=== PATIENT | female | born 1940 | race Caucasian/White ===

== ENCOUNTER 2016-11-21 14:20 | Inpatient (IN) | payer MEDICARE, OTHER ==
[~2016-11-21] VITALS: Ht 160 cm; Wt 66.3 kg
[~2016-11-21 14:20] MED LIST: ACET325T53 PO; ASPI81TA31 PO; BISA10SU8 RC; CHOL100045 PO; DOCU-141 PO; HYDR-552 PO; LORA-259 PO; MAG30ORA PO; MAGN296S PO; MAGN400O6 PO; MAGN400T6 PO; MULT1TAB11 PO; NA P133E RC; OMEG-49 PO; PEG15DRO5 EACHEYE; PIPE3.379 IV; PROP1DRO OP; SIME80TA45 PO; SIMV20TA2 PO; TEMA7.5C PO; TOBR5DRO2 RIGHTEYE
[2016-11-21] MEDS ORDERED: OASIS TEARS EACHEYE (14:47)
[2016-11-21] MEDS ORDERED: MELA3TAB PO (14:47)
[2016-11-21 15:32] LABS: BASOPHILS # (AUTO) 0.1 K/uL (0.0-8.0); BASOPHILS % (AUTO) 1.2 % (0.0-2.0); EOSINOPHILS # (AUTO) 0.1 K/uL (0.0-0.7); EOSINOPHILS % (AUTO) 0.6 % (0.0-7.0); HEMATOCRIT 45.3 % (37-47); HEMOGLOBIN 14.8 G/DL (12.0-16.0); LYMPHOCYTES % (AUTO) 22.6 % (20.5-51.5); MEAN CORPUSCULAR HEMOGLOBIN 30.1 UUG (27.0-31.0); MEAN CORPUSCULAR HGB CONC 33 g/dL (32.0-37.0); MEAN CORPUSCULAR VOLUME 92.1 FL (81.0-99.0); MONOCYTES # (AUTO) 0.5 K/UL (0.1-1.30); NEUTROPHILS % (AUTO) 69.6 % (38.5-71.5); PLATELET COUNT (AUTO) 228 K/UL (150-450); RED BLOOD CELL COUNT(AUTO) 4.92 MIL/UL (4.2-5.4); WHITE BLOOD COUNT (AUTO) 8.7 K/UL (4.0-11.2)
[2016-11-21 15:39] LABS: CARBON DIOXIDE 32 mmol/L (21-32); CHLORIDE 100 mmol/L (98-107); CREATININE 0.4 mg/dL (0.6-1.3); GLUCOSE 95 mg/dL (74-106); POTASSIUM 4.4 mmol/L (3.5-5.1); UREA NITROGEN, BLOOD 12 mg/dL (7-18)
[2016-11-21 15:45] LABS: ALANINE AMINOTRANSFERASE 19 U/L (14-59); ALKALINE PHOSPHATASE 78 U/L (50-136); ASPARTATE AMINOTRANSFERASE 15 U/L (15-37); BILIRUBIN,TOTAL 0.3 mg/dL (0.2-1.0); TOTAL PROTEIN, SERUM 7.3 g/dL (6.4-8.2)
[2016-11-21] MEDS ORDERED: NORMAL SALINE FLUSH 10 ML DISP.SYRIN ONE (16:18)
[2016-11-21] MEDS ORDERED: IOHEXOL 300MG/ML 100 ML INFUS..BTL ONE (16:18)
[2016-11-21] MEDS ORDERED: IV NORMAL SALINE 250 ML IV ONE (16:19)
[2016-11-21 20:42] VITALS: BP 124/77
[2016-11-21] MEDS ORDERED: HYDROCODONE/APAP 5-325MG TABLET PO PRN (21:15)
[2016-11-21] MEDS ORDERED: MELATONIN 3 MG TABLET PO PRN (21:15)
[2016-11-21] MEDS ORDERED: BISACODYL 10 MG SUPP.RECT RC PRN (21:15)
[2016-11-21] MEDS ORDERED: Medication Not On Formulary EA (Omega-3/Dha/Epa/Fish Oil (Fish Oil 1,000 Mg Softgel) 1 E PO SCH (21:15)
[2016-11-21] MEDS ORDERED: MAGNESIUM HYDROXIDE 30 ML LIQUID UDC PO PRN (21:15)
[2016-11-21] MEDS ORDERED: MAG HYDROX/AL HYDROX/SIMETH 30 ML LIQUID UDC PO PRN (21:15)
[2016-11-21] MEDS ORDERED: ACETAMINOPHEN 325 MG TABLET PO PRN (21:15)
[2016-11-21] MEDS ORDERED: SIMETHICONE 80 MG TAB.CHEW PO PRN (21:15)
[2016-11-21] MEDS ORDERED: MAGNESIUM CITRATE 296 ML BOTTLE PO PRN (21:15)
[2016-11-22 05:52] VITALS: BP 114/69
[2016-11-22] MEDS ORDERED: FLEET ENEMA 133 ML BOTTLE RC PRN (09:00)
[2016-11-22] MEDS ORDERED: Medication Not On Formulary EA (Multivitamins W-Minerals (Multivitamin With Minerals) 1 PO SCH (09:00)
[2016-11-22] MEDS: MULTIVIT, IRON, MIN NO. 8, FA TABLET PO SCH (09:35)
[2016-11-22] MEDS: OMEGA-3 FATTY ACIDS/FISH OIL CAPSULE PO SCH ×2 (09:35→21:58)
[2016-11-22] MEDS: ASPIRIN 81 MG TAB.CHEW PO SCH (09:35)
[2016-11-22] MEDS: DOCUSATE SODIUM 100 MG CAPSULE PO SCH ×2 (09:35→17:00)
[2016-11-22] MEDS: MAGNESIUM OXIDE 400 MG TABLET PO SCH (09:36)
[2016-11-22] MEDS: CHOLECALCIFEROL 1,000 UNIT TABLET PO SCH ×3 (09:36→17:00)
[2016-11-22 11:02] VITALS: BP 99/54
[2016-11-22] MEDS: IV NS 1000 ML 1,000 ML IV PRN (12:33)
[2016-11-22] MEDS ORDERED: BARIUM SULFATE 450 ML ORAL.SUSP ONE (13:18)
[2016-11-22 15:31] VITALS: BP 108/54
[2016-11-22 16:39] LABS: *BILIRUBIN,URIN NEGATIVE (NEGATIVE); *BLOOD, URINE NEGATIVE (NEGATIVE); *COLOR,URINE YELLOW (YELLOW); *KETONES,URINE TRACE (NEGATIVE); *PROTEIN,URINE NEGATIVE (NEGATIVE); *UROBILINOGEN,URINE 0.2 E.U./dl (NORMAL); LEUKOCYTE ESTERASE ,URINE NEGATIVE (NEGATIVE); NITRITE, URINE NEGATIVE (NEGATIVE); PH,URINE 6.5 (5.0-8.0); UGLUCOSE NEGATIVE (NEGATIVE)
[2016-11-22 17:13] LABS: *CLARITY,URINE HAZY (CLEAR); RBC,URINE 0-3 /HPF (0-3); SQUAMOUS EPITHELIAL CELL,UR MODERATE /HPF (NONE SEEN); WBC,URINE 0-3 /HPF (0-3)
[2016-11-22 17:14] LABS: MUCUS,URINE MODERATE /LPF (0-FEW)
[2016-11-22 20:00] VITALS: BP 118/75
[2016-11-22] MEDS ORDERED: NORMAL SALINE FLUSH 10 ML DISP.SYRIN ONE (20:55)
[2016-11-22] MEDS ORDERED: IOHEXOL 300MG/ML 100 ML INFUS..BTL ONE (20:55)
[2016-11-22] MEDS ORDERED: IV NORMAL SALINE 250 ML IV ONE (20:55)
[2016-11-22] MEDS ORDERED: SIMVASTATIN 20 MG TABLET PO SCH (21:00)
[2016-11-22] MEDS: POLYVINYL ALCOHOL OPHT DROPS 15 ML BOTTLE EACHEYE PRN (21:59)
[2016-11-23] MEDS: IV NS 1000 ML 1,000 ML IV PRN (03:45)
[2016-11-23 05:31] VITALS: BP 119/71
[2016-11-23 07:43] LABS: BASOPHILS % (AUTO) 0.1 % (0.0-2.0); EOSINOPHILS # (AUTO) 0.1 K/uL (0.0-0.7); EOSINOPHILS % (AUTO) 0.8 % (0.0-7.0); HEMATOCRIT 43.1 % (37-47); HEMOGLOBIN 14.4 G/DL (12.0-16.0); LYMPHOCYTES # (AUTO) 1.7 K/UL (0.8-4.8); LYMPHOCYTES % (AUTO) 24.4 % (20.5-51.5); MEAN CORPUSCULAR HGB CONC 33 g/dL (32.0-37.0); MEAN CORPUSCULAR VOLUME 92.6 FL (81.0-99.0); MONOCYTES # (AUTO) 0.5 K/UL (0.1-1.30); MONOCYTES % (AUTO) 6.5 % (0.0-11.0); NEUTROPHILS # (AUTO) 4.8 K/UL (1.8-8.9); NEUTROPHILS % (AUTO) 68.2 % (38.5-71.5); PLATELET COUNT (AUTO) 189 K/UL (150-450); RED BLOOD CELL COUNT(AUTO) 4.66 MIL/UL (4.2-5.4); WHITE BLOOD COUNT (AUTO) 7.1 K/UL (4.0-11.2)
[2016-11-23 08:05] LABS: THYROID STIMULATING HORMONE 1.586 mIU/mL (0.358-3.740)
[2016-11-23 08:53] LABS: ALANINE AMINOTRANSFERASE 18 U/L (14-59); ALKALINE PHOSPHATASE 72 U/L (50-136); ASPARTATE AMINOTRANSFERASE 15 U/L (15-37); BILIRUBIN,TOTAL 0.4 mg/dL (0.2-1.0); CARBON DIOXIDE 29 mmol/L (21-32); CHLORIDE 104 mmol/L (98-107); CHOLESTEROL 176 mg/dL (<200); CREATININE 0.3 mg/dL (0.6-1.3); GLUCOSE 92 mg/dL (74-106); HDL CHOLESTEROL 47 mg/dL (40-60); PHOSPHOROUS 4.1 mg/dL (2.5-4.9); POTASSIUM 3.8 mmol/L (3.5-5.1); TOTAL PROTEIN, SERUM 6.7 g/dL (6.4-8.2); TRIGLYCERIDES 67 MG/DL (30-150); UREA NITROGEN, BLOOD 6 mg/dL (7-18)
[2016-11-23] MEDS: ASPIRIN 81 MG TAB.CHEW PO SCH (09:53)
[2016-11-23] MEDS: MULTIVIT, IRON, MIN NO. 8, FA TABLET PO SCH (09:53)
[2016-11-23] MEDS: OMEGA-3 FATTY ACIDS/FISH OIL CAPSULE PO SCH ×2 (09:53→21:00)
[2016-11-23] MEDS: CHOLECALCIFEROL 1,000 UNIT TABLET PO SCH ×3 (09:53→17:27)
[2016-11-23] MEDS: MAGNESIUM OXIDE 400 MG TABLET PO SCH (09:53)
[2016-11-23] MEDS: DOCUSATE SODIUM 100 MG CAPSULE PO SCH ×2 (10:43→17:27)
[2016-11-23 11:08] VITALS: BP 140/83
[2016-11-23 16:02] VITALS: BP 133/76
[2016-11-23 20:00] VITALS: BP 118/68
[2016-11-23] MEDS: POLYVINYL ALCOHOL OPHT DROPS 15 ML BOTTLE EACHEYE PRN (20:49)
[2016-11-23] MEDS ORDERED: EZETIMIBE 10 MG TABLET PO SCH (21:00)
[2016-11-23] MEDS ORDERED: SIMVASTATIN 20 MG TABLET PO SCH (21:00)
[2016-11-24 04:28] VITALS: BP 148/67
[2016-11-24] MEDS: MULTIVIT, IRON, MIN NO. 8, FA TABLET PO SCH (08:45)
[2016-11-24] MEDS: MAGNESIUM OXIDE 400 MG TABLET PO SCH (08:45)
[2016-11-24] MEDS: DOCUSATE SODIUM 100 MG CAPSULE PO SCH ×2 (08:45→16:56)
[2016-11-24] MEDS: ASPIRIN 81 MG TAB.CHEW PO SCH (08:45)
[2016-11-24] MEDS: CHOLECALCIFEROL 1,000 UNIT TABLET PO SCH ×3 (08:45→16:56)
[2016-11-24] MEDS: OMEGA-3 FATTY ACIDS/FISH OIL CAPSULE PO SCH (08:45)
[2016-11-24] MEDS: IV NS 1000 ML 1,000 ML IV PRN (10:54)
[2016-11-24 11:10] VITALS: BP 118/73
[2016-11-24 15:44] VITALS: BP 122/64
[2016-11-24] MEDS ORDERED: SIMV20TA6 PO (17:07)
[2016-11-24] MEDS ORDERED: EZET10TA13 PO (17:07)
[2016-11-24] MEDS ORDERED: TRAZ-144 PO (17:07)
== END 2016-11-24 19:40 | DRG 58 ==
LOC: ER 14:20 → MED 19:59
PROVIDERS: ADMIT Internal Medicine; ATTEND Internal Medicine
DX: G35 Multiple sclerosis (principal); G82.50 Quadriplegia, unspecified; G93.40 Encephalopathy, unspecified; G71.0 Muscular dystrophy; I50.32 Chronic diastolic (congestive) heart failure; D68.59 Other primary thrombophilia; R22.1 Localized swelling, mass and lump, neck; R13.19 Other dysphagia; M47.892 Other spondylosis, cervical region; D32.0 Benign neoplasm of cerebral meninges; G89.4 Chronic pain syndrome; G62.9 Polyneuropathy, unspecified; K86.89 Other specified diseases of pancreas; I11.0 Hypertensive heart disease with heart failure; F32.9 Major depressive disorder, single episode, unspecified; R73.03 Prediabetes; F41.9 Anxiety disorder, unspecified; F03.90 Unspecified dementia, unspecified severity, without behavioral disturbance, psychotic disturbance, mood disturbance, and anxiety; Z79.899 Other long term (current) drug therapy; Z79.82 Long term (current) use of aspirin; Z87.440 Personal history of urinary (tract) infections; Z87.442 Personal history of urinary calculi; E04.1 Nontoxic single thyroid nodule; R94.2 Abnormal results of pulmonary function studies; I67.2 Cerebral atherosclerosis; E78.5 Hyperlipidemia, unspecified; Z74.01 Bed confinement status
CPT/HCPCS: 36415; 70460; 70491; 71260; 72193; 74160; 82306; 83735; 84100; 84443; 85025; 85651; 86140; 87086; 92610; 97161; C1758; J3490; J7030; J7050; Q9951; Q9967

== ENCOUNTER 2018-06-29 12:25 | Inpatient (IN) | payer MEDICARE, OTHER ==
[~2018-06-29] VITALS: Ht 157.5 cm; Wt 69.9 kg
[~2018-06-29 12:25] MED LIST changes: +EZET10TA13 PO; +HYDR-4384 PO; -HYDR-552 PO; -LORA-259 PO; -MAGN296S PO; +MAGN296S70 PO; +MELA3TAB PO; +OASIS TEARS EACHEYE; -PEG15DRO5 EACHEYE; -PIPE3.379 IV; -SIME80TA45 PO; -SIMV20TA2 PO; +SIMV20TA6 PO; -TEMA7.5C PO; -TOBR5DRO2 RIGHTEYE; +TRAZ-182 PO
[2018-06-29 13:09] LABS: BASOPHILS # (AUTO) 0.1 K/uL (0.0-8.0); EOSINOPHILS % (AUTO) 0.3 % (0.0-7.0); HEMATOCRIT 45.9 % (31.2-41.9); HEMOGLOBIN 15.6 g/dL (10.9-14.3); LYMPHOCYTES # (AUTO) 1.7 K/uL (20.0-40.0); LYMPHOCYTES % (AUTO) 18.8 % (20.5-51.5); MEAN CORPUSCULAR HEMOGLOBIN 30.8 uug (24.7-32.8); MEAN CORPUSCULAR HGB CONC 34 g/dL (32.3-35.6); MONOCYTES # (AUTO) 0.4 K/uL (2.0-10.0); MONOCYTES % (AUTO) 4.7 % (0.0-11.0); NEUTROPHILS # (AUTO) 6.9 K/uL (1.8-8.9); NEUTROPHILS % (AUTO) 75.2 % (38.5-71.5); PLATELET COUNT (AUTO) 185 K/uL (179-408); RED BLOOD CELL COUNT(AUTO) 5.05 MIL/uL (3.63-4.92); WHITE BLOOD COUNT (AUTO) 9.2 K/uL (3.8-11.8)
[2018-06-29 13:18] LABS: CARBON DIOXIDE 32 mmol/L (21-32); CHLORIDE 102 mmol/L (98-107); CREATININE 0.2 mg/dL (0.6-1.3); GLUCOSE 112 mg/dL (74-106); POTASSIUM 4.3 mmol/L (3.5-5.1); UREA NITROGEN, BLOOD 16 mg/dL (7-18)
[2018-06-29 13:31] LABS: ALANINE AMINOTRANSFERASE 17 U/L (14-59); ALKALINE PHOSPHATASE 83 U/L (50-136); ASPARTATE AMINOTRANSFERASE 12 U/L (15-37); BILIRUBIN,DIRECT 0.1 mg/dL (0.0-0.2); BILIRUBIN,TOTAL 0.5 mg/dL (0.2-1.0); TOTAL PROTEIN, SERUM 7.8 g/dL (6.4-8.2)
[2018-06-29] MEDS ORDERED: SIMV40TA5 PO (13:33)
[2018-06-29] MEDS ORDERED: RISP0.5T5 PO (13:33)
[2018-06-29] MEDS ORDERED: TRAZ-182 PO (13:33)
[2018-06-29] MEDS ORDERED: IV NORMAL SALINE 1000 ML BAG IV ONE (15:30)
[2018-06-29 15:31] LABS: *BILIRUBIN,URIN NEGATIVE (NEGATIVE); *BLOOD, URINE 1+ (NEGATIVE); *COLOR,URINE YELLOW (YELLOW); *KETONES,URINE 4+ (NEGATIVE); *UROBILINOGEN,URINE 0.2 E.U./dl (NORMAL); LEUKOCYTE ESTERASE ,URINE 3+ (NEGATIVE); NITRITE, URINE NEGATIVE (NEGATIVE); UGLUCOSE NEGATIVE (NEGATIVE)
[2018-06-29 15:35] LABS: *CLARITY,URINE HAZY (CLEAR)
[2018-06-29 15:42] LABS: BACTERIA,URINE MODERATE /HPF (NONE SEEN); SQUAMOUS EPITHELIAL CELL,UR FEW /HPF (NONE SEEN); WBC,URINE 20-50 /HPF (0-3)
[2018-06-29] MEDS ORDERED: CEFTRIAXONE 1 G in IV DEXTROSE 5% 50 ML IV ONE (16:00)
[2018-06-29] MEDS ORDERED: LEVOFLOXACIN 750 MG/D5W 150 ML PIGGYBACK IV ONE (16:00)
[2018-06-29] MEDS ORDERED: ACETAMINOPHEN ES 500 MG TABLET PO ONE (16:15)
[2018-06-29] MEDS ORDERED: METOPROLOL TARTRATE 5 MG/5 ML VIAL IVP ONE ×2 (16:30→16:36)
[2018-06-29] MEDS ORDERED: CEFTRIAXONE 1 G VIAL ONE (16:30)
[2018-06-29] MEDS ORDERED: ACETAMINOPHEN ES 500 MG TABLET ONE (16:30)
[2018-06-29] MEDS ORDERED: LEVOFLOXACIN 750MG/D5W 150 ML IV ONE (16:30)
[2018-06-29 17:50] VITALS: BP 147/87
[2018-06-29] MEDS ORDERED: ACETAMINOPHEN 325 MG TABLET PO PRN (18:45)
[2018-06-29] MEDS ORDERED: ONDANSETRON 4 MG/2 ML VIAL IV PRN (18:45)
[2018-06-29] MEDS ORDERED: MAGNESIUM HYDROXIDE 30 ML LIQUID UDC PO PRN (18:45)
[2018-06-29] MEDS ORDERED: HYDROCODONE/APAP 5-325MG TABLET PO PRN (18:45)
[2018-06-29] MEDS: IV NS 1000 ML 1,000 ML IV PRN (19:34)
[2018-06-29] MEDS: SIMVASTATIN 40 MG TABLET PO SCH (19:58)
[2018-06-29] MEDS: DOCUSATE SODIUM 100 MG CAPSULE PO SCH (19:58)
[2018-06-29 20:00] VITALS: BP 137/78
[2018-06-29] MEDS: Z GUARD REMEDY PASTE 57 GM TUBE TOP PRN (21:21)
[2018-06-30] VITALS: BP 122/70
[2018-06-30 04:00] VITALS: BP 137/78
[2018-06-30] MEDS: IV NS 1000 ML 1,000 ML IV PRN ×2 (06:50→20:25)
[2018-06-30 06:56] LABS: BASOPHILS % (AUTO) 0.3 % (0.0-2.0); EOSINOPHILS # (AUTO) 0.1 K/uL (0.0-0.7); EOSINOPHILS % (AUTO) 0.7 % (0.0-7.0); HEMATOCRIT 40.5 % (31.2-41.9); LYMPHOCYTES # (AUTO) 1.4 K/uL (20.0-40.0); LYMPHOCYTES % (AUTO) 19.4 % (20.5-51.5); MEAN CORPUSCULAR HEMOGLOBIN 31.1 uug (24.7-32.8); MEAN CORPUSCULAR HGB CONC 35 g/dL (32.3-35.6); MEAN CORPUSCULAR VOLUME 89.7 fL (75.5-95.3); MONOCYTES # (AUTO) 0.4 K/uL (2.0-10.0); NEUTROPHILS # (AUTO) 5.3 K/uL (1.8-8.9); NEUTROPHILS % (AUTO) 73.6 % (38.5-71.5); PLATELET COUNT (AUTO) 166 K/uL (179-408); RED BLOOD CELL COUNT(AUTO) 4.51 MIL/uL (3.63-4.92); WHITE BLOOD COUNT (AUTO) 7.2 K/uL (3.8-11.8)
[2018-06-30 07:12] LABS: ALANINE AMINOTRANSFERASE 12 U/L (14-59); ALKALINE PHOSPHATASE 69 U/L (50-136); ASPARTATE AMINOTRANSFERASE 11 U/L (15-37); BILIRUBIN,TOTAL 0.5 mg/dL (0.2-1.0); CARBON DIOXIDE 29 mmol/L (21-32); CHLORIDE 104 mmol/L (98-107); CHOLESTEROL 167 mg/dL (<200); CREATININE 0.2 mg/dL (0.6-1.3); GLUCOSE 101 mg/dL (74-106); HDL CHOLESTEROL 57 mg/dL (40-60); MAGNESIUM 1.6 mg/dL (1.8-2.4); PHOSPHOROUS 3.1 mg/dL (2.5-4.9); POTASSIUM 3.6 mmol/L (3.5-5.1); TOTAL PROTEIN, SERUM 6.6 g/dL (6.4-8.2); TRIGLYCERIDES 72 MG/DL (30-150); UREA NITROGEN, BLOOD 9 mg/dL (7-18)
[2018-06-30] MEDS: ASPIRIN 81 MG TAB.CHEW PO SCH (08:52)
[2018-06-30] MEDS: MAGNESIUM OXIDE 400 MG TABLET PO SCH (08:52)
[2018-06-30] MEDS: DOCUSATE SODIUM 100 MG CAPSULE PO SCH ×2 (08:52→17:23)
[2018-06-30 11:07] VITALS: BP 108/70
[2018-06-30] MEDS ORDERED: MAGNESIUM OXIDE 400 MG TABLET PO ONE (11:30)
[2018-06-30 15:01] VITALS: BP 138/70
[2018-06-30] MEDS: CEFTRIAXONE 1 G in IV DEXTROSE 5% 50 ML IV SCH (16:20)
[2018-06-30] MEDS: VANCOMYCIN IV 1 G in PREMIXED 0 EACH IV SCH (18:37)
[2018-06-30] MEDS: ACETAMINOPHEN 325 MG TABLET PO PRN (19:58)
[2018-06-30] MEDS: SIMVASTATIN 40 MG TABLET PO SCH (19:58)
[2018-06-30 20:00] VITALS: BP 138/67
[2018-06-30] MEDS: Z GUARD REMEDY PASTE 57 GM TUBE TOP PRN (20:29)
[2018-07-01 06:29] LABS: CARBON DIOXIDE 30 mmol/L (21-32); CHLORIDE 105 mmol/L (98-107); GLUCOSE 96 mg/dL (74-106); MAGNESIUM 1.8 mg/dL (1.8-2.4); POTASSIUM 3.1 mmol/L (3.5-5.1); UREA NITROGEN, BLOOD 8 mg/dL (7-18)
[2018-07-01] MEDS: IV NS 1000 ML 1,000 ML IV PRN ×2 (06:32→23:47)
[2018-07-01 06:36] VITALS: BP 134/73
[2018-07-01 06:41] LABS: CREATININE < 0.2 mg/dL (0.6-1.3)
[2018-07-01] MEDS: ASPIRIN 81 MG TAB.CHEW PO SCH (08:52)
[2018-07-01] MEDS: DOCUSATE SODIUM 100 MG CAPSULE PO SCH ×2 (08:52→16:46)
[2018-07-01] MEDS: MAGNESIUM OXIDE 400 MG TABLET PO SCH (08:52)
[2018-07-01] MEDS ORDERED: TOBRAMYCIN/DEXAMETH OPHT DROP 2.5 ML BOTTLE EACHEYE SCH (09:00)
[2018-07-01 11:33] VITALS: BP 133/74
[2018-07-01] MEDS: NEO/POLYMYX B/DEXAM OPHT DROP 5 ML BOTTLE EACHEYE SCH ×3 (13:34→23:48)
[2018-07-01] MEDS ORDERED: POTASSIUM CHLORIDE 20 MEQ TAB.PRT.SR PO ONE (15:15)
[2018-07-01 15:37] VITALS: BP 147/89
[2018-07-01] MEDS: CEFTRIAXONE 1 G in IV DEXTROSE 5% 50 ML IV SCH (16:10)
[2018-07-01] MEDS: VANCOMYCIN IV 1 G in PREMIXED 0 EACH IV SCH (17:35)
[2018-07-01 19:00] VITALS: BP 129/73
[2018-07-01] MEDS: SIMVASTATIN 40 MG TABLET PO SCH (21:28)
[2018-07-01] MEDS: Z GUARD REMEDY PASTE 57 GM TUBE TOP PRN (21:29)
[2018-07-01] MEDS: ACETAMINOPHEN 325 MG TABLET PO PRN (21:29)
[2018-07-02 04:00] VITALS: BP 127/67
[2018-07-02 06:23] LABS: CARBON DIOXIDE 29 mmol/L (21-32); CHLORIDE 105 mmol/L (98-107); CREATININE < 0.2 mg/dL (0.6-1.3); GLUCOSE 79 mg/dL (74-106); POTASSIUM 3.4 mmol/L (3.5-5.1); UREA NITROGEN, BLOOD 8 mg/dL (7-18)
[2018-07-02] MEDS: NEO/POLYMYX B/DEXAM OPHT DROP 5 ML BOTTLE EACHEYE SCH ×3 (06:53→18:34)
[2018-07-02] MEDS: ASPIRIN 81 MG TAB.CHEW PO SCH (08:51)
[2018-07-02] MEDS: DOCUSATE SODIUM 100 MG CAPSULE PO SCH ×2 (08:51→15:54)
[2018-07-02] MEDS: MAGNESIUM OXIDE 400 MG TABLET PO SCH (08:51)
[2018-07-02 12:02] VITALS: BP 133/79
[2018-07-02] MEDS: IV NS 1000 ML 1,000 ML IV PRN (14:03)
[2018-07-02] MEDS ORDERED: POTASSIUM CHLORIDE 20 MEQ TAB.PRT.SR PO ONE (14:30)
[2018-07-02] MEDS ORDERED: diphenhydrAMINE 50 MG/1 ML VIAL IV PRN (15:30)
[2018-07-02] MEDS: CEFTRIAXONE 1 G in IV DEXTROSE 5% 50 ML IV SCH (15:53)
[2018-07-02 15:54] VITALS: BP 130/80
[2018-07-02 20:00] VITALS: BP 142/74
[2018-07-02] MEDS: SIMVASTATIN 40 MG TABLET PO SCH (20:23)
[2018-07-03] MEDS: NEO/POLYMYX B/DEXAM OPHT DROP 5 ML BOTTLE EACHEYE SCH ×5 (00:53→23:39)
[2018-07-03 04:58] VITALS: BP 133/75
[2018-07-03 06:39] LABS: CARBON DIOXIDE 30 mmol/L (21-32); CHLORIDE 108 mmol/L (98-107); CREATININE < 0.2 mg/dL (0.6-1.3); GLUCOSE 105 mg/dL (74-106); POTASSIUM 3.6 mmol/L (3.5-5.1); UREA NITROGEN, BLOOD 12 mg/dL (7-18)
[2018-07-03] MEDS: LEVOFLOXACIN 500 MG TABLET PO SCH (08:46)
[2018-07-03] MEDS: DOCUSATE SODIUM 100 MG CAPSULE PO SCH ×2 (08:47→16:48)
[2018-07-03] MEDS: MAGNESIUM OXIDE 400 MG TABLET PO SCH (08:47)
[2018-07-03] MEDS: ASPIRIN 81 MG TAB.CHEW PO SCH (08:47)
[2018-07-03 11:21] VITALS: BP 126/63
[2018-07-03 15:02] VITALS: BP 142/74
[2018-07-03 20:00] VITALS: BP 131/74
[2018-07-03] MEDS: SIMVASTATIN 40 MG TABLET PO SCH (20:31)
[2018-07-04 04:43] VITALS: BP 134/73
[2018-07-04] MEDS: NEO/POLYMYX B/DEXAM OPHT DROP 5 ML BOTTLE EACHEYE SCH ×2 (05:27→12:10)
[2018-07-04] MEDS: MAGNESIUM OXIDE 400 MG TABLET PO SCH (08:37)
[2018-07-04] MEDS: LEVOFLOXACIN 500 MG TABLET PO SCH (08:37)
[2018-07-04] MEDS: ASPIRIN 81 MG TAB.CHEW PO SCH (08:37)
[2018-07-04] MEDS: DOCUSATE SODIUM 100 MG CAPSULE PO SCH (08:37)
[2018-07-04 10:33] VITALS: BP 134/73
[2018-07-04 11:02] VITALS: BP 138/76
== END 2018-07-04 13:00 | DRG 871 ==
LOC: ER 12:25 → TELE 17:23 → MED 06-30 08:20
PROVIDERS: ADMIT Internal Medicine; ATTEND Internal Medicine
DX: A41.9 Sepsis, unspecified organism (principal); G93.41 Metabolic encephalopathy; R53.2 Functional quadriplegia; N39.0 Urinary tract infection, site not specified; E44.0 Moderate protein-calorie malnutrition; R65.20 Severe sepsis without septic shock; B96.1 Klebsiella pneumoniae [K. pneumoniae] as the cause of diseases classified elsewhere; B95.8 Unspecified staphylococcus as the cause of diseases classified elsewhere; G35 Multiple sclerosis; G89.4 Chronic pain syndrome; Z86.011 Personal history of benign neoplasm of the brain; Z86.73 Personal history of transient ischemic attack (TIA), and cerebral infarction without residual deficits; Z79.82 Long term (current) use of aspirin; E86.0 Dehydration; F03.90 Unspecified dementia, unspecified severity, without behavioral disturbance, psychotic disturbance, mood disturbance, and anxiety; Z68.28 Body mass index [BMI] 28.0-28.9, adult; G93.89 Other specified disorders of brain; Z86.79 Personal history of other diseases of the circulatory system
CPT/HCPCS: 36415; 70030-TC; 70450; 71045; 83605; 83735; 84100; 84443; 85025; 85730; 87040; 87077; 87086; 87400; 93005; A4663; A9150; C1758; G0378; J0696; J1200; J1956; J3370; J3490; J3590; J7030; J7060

== ENCOUNTER 2019-06-09 20:38 | Inpatient (IN) | payer MEDICARE, OTHER ==
[~2019-06-09] VITALS: Ht 167.6 cm; Wt 62.6 kg
[~2019-06-09 20:38] MED LIST changes: +BISA10SU11 RC; -BISA10SU8 RC; -EZET10TA13 PO; -HYDR-4384 PO; -MAGN296S70 PO; -MAGN400T6 PO; +MAGN400T8 PO; -MELA3TAB PO; +RISP0.5T5 PO; +SIMV-49 PO; -SIMV20TA6 PO
[2019-06-09] MEDS ORDERED: IV NORMAL SALINE 1000 ML BAG IV ONE (21:00)
[2019-06-09 21:13] LABS: BASOPHILS % (AUTO) 0.1 % (0.0-2.0); HEMATOCRIT 30.3 % (31.2-41.9); HEMOGLOBIN 10.3 g/dL (10.9-14.3); LYMPHOCYTES # (AUTO) 0.7 K/uL (20.0-40.0); LYMPHOCYTES % (AUTO) 4.7 % (20.5-51.5); MEAN CORPUSCULAR HEMOGLOBIN 30.6 uug (24.7-32.8); MEAN CORPUSCULAR HGB CONC 34 g/dL (32.3-35.6); MEAN CORPUSCULAR VOLUME 89.9 fL (75.5-95.3); MONOCYTES # (AUTO) 0.5 K/uL (2.0-10.0); MONOCYTES % (AUTO) 3.5 % (0.0-11.0); NEUTROPHILS # (AUTO) 12.7 K/uL (1.8-8.9); NEUTROPHILS % (AUTO) 91.7 % (38.5-71.5); PLATELET COUNT (AUTO) 175 K/uL (179-408); RED BLOOD CELL COUNT(AUTO) 3.37 MIL/uL (3.63-4.92); WHITE BLOOD COUNT (AUTO) 13.9 K/uL (3.8-11.8)
[2019-06-09 21:18] LABS: CREATININE 0.7 mg/dL (0.6-1.3); POTASSIUM 3.2 mmol/L (3.5-5.1)
[2019-06-09] MEDS ORDERED: TRAZ-182 GT (21:19)
[2019-06-09] MEDS ORDERED: CHOL100045 GT (21:19)
[2019-06-09] MEDS ORDERED: POTA40LI2 GT (21:19)
[2019-06-09] MEDS ORDERED: DOCU50LI13 GT (21:19)
[2019-06-09] MEDS ORDERED: PROT946L GT (21:19)
[2019-06-09] MEDS ORDERED: [UNRECOGNIZED DRUG - CODE] TP (21:19)
[2019-06-09] MEDS ORDERED: METO25TA6 GT (21:19)
[2019-06-09] MEDS ORDERED: ATOR20TA GT (21:19)
[2019-06-09] MEDS ORDERED: IPRA3AMP22 IH ×2 (21:19)
[2019-06-09] MEDS ORDERED: FURO40TA5 GT (21:19)
[2019-06-09] MEDS ORDERED: OMEP20CA15 GT (21:19)
[2019-06-09] MEDS ORDERED: [UNRECOGNIZED DRUG - OTHER] (21:19)
[2019-06-09] MEDS ORDERED: BACL10TA GT (21:19)
[2019-06-09] MEDS ORDERED: ACET160L24 GT (21:19)
[2019-06-09 21:24] LABS: *BILIRUBIN,URIN NEGATIVE (NEGATIVE); *BLOOD, URINE 1+ (NEGATIVE); *KETONES,URINE NEGATIVE (NEGATIVE); *UROBILINOGEN,URINE 0.2 E.U./dl (NORMAL); LEUKOCYTE ESTERASE ,URINE 1+ (NEGATIVE); NITRITE, URINE NEGATIVE (NEGATIVE); PH,URINE 5.5 (5.0-8.0); UGLUCOSE NEGATIVE (NEGATIVE)
[2019-06-09 21:30] LABS: BILIRUBIN,DIRECT 0.1 mg/dL (0.0-0.2); BILIRUBIN,TOTAL 0.5 mg/dL (0.2-1.0)
[2019-06-09 21:34] LABS: *CLARITY,URINE CLOUDY (CLEAR); *COLOR,URINE YELLOW (YELLOW)
[2019-06-09 21:36] LABS: BACTERIA,URINE MANY /HPF (NONE SEEN); COARSE GRANULAR CASTS,URINE 0-3 /LPF; SQUAMOUS EPITHELIAL CELL,UR MODERATE /HPF (NONE SEEN); WBC,URINE 50-80 /HPF (0-3)
[2019-06-09 21:37] LABS: MUCUS,URINE MODERATE /LPF (0-FEW)
[2019-06-09 21:50] LABS: BAND % (MANUAL) 25 % (0-10); LYMPHOCYTES % (MANUAL) 6 % (20-40); MONOCYTES % (MANUAL) 2 % (2-10); NEUTROPHILS % (MANUAL) 67 % (42-75)
[2019-06-09 21:57] LABS: *OCCULT BLOOD STOOL NEGATIVE (NEGATIVE)
[2019-06-09] MEDS ORDERED: CEFTRIAXONE 1 G in IV DEXTROSE 5% 50 ML IV ONE (22:15)
[2019-06-09] MEDS ORDERED: CEFTRIAXONE /D5W 50ML IVPB **ER PYXIS IV ONE (22:17)
[2019-06-09] MEDS ORDERED: CEFTRIAXONE 1 G in IV DEXTROSE 5% 50 ML IV SCH (23:45)
[2019-06-09] MEDS ORDERED: ONDANSETRON 4 MG/2 ML VIAL IV SCH (23:45)
[2019-06-10 06:33] LABS: HEMATOCRIT 29.8 % (31.2-41.9); HEMOGLOBIN 10.2 g/dL (10.9-14.3); MEAN CORPUSCULAR HGB CONC 34 g/dL (32.3-35.6); MEAN CORPUSCULAR VOLUME 90.9 fL (75.5-95.3); PLATELET COUNT (AUTO) 175 K/uL (179-408); RED BLOOD CELL COUNT(AUTO) 3.28 MIL/uL (3.63-4.92)
[2019-06-10 06:39] LABS: WHITE BLOOD COUNT (AUTO) 10.4 K/uL (3.8-11.8)
[2019-06-10 06:52] LABS: BAND % (MANUAL) 3 % (0-10); EOSINOPHILS % (MANUAL) 3 % (0-8); LYMPHOCYTES % (MANUAL) 18 % (20-40); MONOCYTES % (MANUAL) 6 % (2-10); NEUTROPHILS % (MANUAL) 70 % (42-75)
[2019-06-10 07:11] LABS: ALANINE AMINOTRANSFERASE 46 U/L (14-59); ALKALINE PHOSPHATASE 119 U/L (50-136); ASPARTATE AMINOTRANSFERASE 36 U/L (15-37); BILIRUBIN,TOTAL 0.5 mg/dL (0.2-1.0); CARBON DIOXIDE 26 mmol/L (21-32); CHLORIDE 105 mmol/L (98-107); CREATININE 0.4 mg/dL (0.6-1.3); GLUCOSE 125 mg/dL (74-106); MAGNESIUM 2.3 mg/dL (1.8-2.4); PHOSPHOROUS 3.1 mg/dL (2.5-4.9); POTASSIUM 3.2 mmol/L (3.5-5.1); TOTAL PROTEIN, SERUM 7.8 g/dL (6.4-8.2); UREA NITROGEN, BLOOD 45 mg/dL (7-18)
[2019-06-10] MEDS: PANTOPRAZOLE SODIUM 40 MG VIAL IV SCH (09:22)
[2019-06-10] MEDS ORDERED: CEFTRIAXONE 1 G VIAL IM SCH (10:00)
[2019-06-10] MEDS ORDERED: ONDANSETRON 4 MG/2 ML VIAL IV PRN (10:04)
[2019-06-10] MEDS: POTASSIUM CHLORIDE 50 ML IV SCH ×2 (10:18→11:32)
[2019-06-10 10:28] LABS: CHOLESTEROL 129 mg/dL (<200); HDL CHOLESTEROL 10 mg/dL (40-60); TRIGLYCERIDES 473 MG/DL (30-150)
[2019-06-10 10:56] VITALS: BP 122/68
[2019-06-10 15:17] VITALS: BP 124/47
[2019-06-10] MEDS: JEVITY 1.2 1000 ML LIQUID GT PRN (17:36)
[2019-06-10 19:58] VITALS: BP 123/67
[2019-06-10] MEDS ORDERED: CEFTRIAXONE 1 G in IV DEXTROSE 5% 50 ML IV SCH (22:30)
[2019-06-11] VITALS: BP 129/70
[2019-06-11 04:00] VITALS: BP 118/68
[2019-06-11 06:56] LABS: BASOPHILS % (AUTO) 0.3 % (0.0-2.0); EOSINOPHILS % (AUTO) 0.5 % (0.0-7.0); HEMATOCRIT 30.6 % (31.2-41.9); HEMOGLOBIN 10.2 g/dL (10.9-14.3); LYMPHOCYTES # (AUTO) 1.1 K/uL (20.0-40.0); LYMPHOCYTES % (AUTO) 14.7 % (20.5-51.5); MEAN CORPUSCULAR HEMOGLOBIN 30.2 uug (24.7-32.8); MEAN CORPUSCULAR HGB CONC 33 g/dL (32.3-35.6); MEAN CORPUSCULAR VOLUME 90.8 fL (75.5-95.3); MONOCYTES # (AUTO) 0.5 K/uL (2.0-10.0); NEUTROPHILS # (AUTO) 5.6 K/uL (1.8-8.9); NEUTROPHILS % (AUTO) 77.5 % (38.5-71.5); PLATELET COUNT (AUTO) 189 K/uL (179-408); RED BLOOD CELL COUNT(AUTO) 3.37 MIL/uL (3.63-4.92); WHITE BLOOD COUNT (AUTO) 7.3 K/uL (3.8-11.8)
[2019-06-11 07:00] LABS: ALANINE AMINOTRANSFERASE 53 U/L (14-59); ALKALINE PHOSPHATASE 107 U/L (50-136); ASPARTATE AMINOTRANSFERASE 36 U/L (15-37); BILIRUBIN,TOTAL 0.3 mg/dL (0.2-1.0); CARBON DIOXIDE 26 mmol/L (21-32); CHLORIDE 111 mmol/L (98-107); CREATININE 0.4 mg/dL (0.6-1.3); GLUCOSE 218 mg/dL (74-106); MAGNESIUM 2.2 mg/dL (1.8-2.4); PHOSPHOROUS 2.9 mg/dL (2.5-4.9); POTASSIUM 4.2 mmol/L (3.5-5.1); TOTAL PROTEIN, SERUM 7.5 g/dL (6.4-8.2); UREA NITROGEN, BLOOD 28 mg/dL (7-18)
[2019-06-11 07:30] VITALS: BP 130/72
[2019-06-11] MEDS: PANTOPRAZOLE SODIUM 40 MG VIAL IV SCH (08:34)
[2019-06-11 11:42] VITALS: BP 116/69
[2019-06-11 12:29] LABS: ABG BASE EXCESS -0.8 mmol/L; ABG HCO3 22.5 mmol/L; ABG PH 7.464 (7.350-7.450); ABG PO2 146.8 mmHg (75.0-100.0); ABG SITE RIGHT BRACHIAL; ABG TOTAL HEMOGLOBIN 10.3 G/dL (12.0-16.0); COHb 0.6 % (0.5-1.5); MetHb 0.3 % (0.0-1.5); O2Hb 98.6 % (94.0-97.0); VT, ABG 500 mL
[2019-06-11] MEDS: JEVITY 1.2 1000 ML LIQUID GT PRN (14:27)
[2019-06-11 15:48] VITALS: BP 115/57
[2019-06-11] MEDS: Z GUARD REMEDY PASTE 57 GM TUBE TOP PRN (16:28)
[2019-06-11] MEDS ORDERED: IPRATROPIUM BROMIDE 0.5 MG/2.5 ML NEBU NEB PRN (18:15)
[2019-06-11] MEDS ORDERED: DOCUSATE SODIUM 100 MG/10 ML LIQUID UDC GT PRN (18:15)
[2019-06-11] MEDS ORDERED: ALBUTEROL SULFATE 2.5 MG/3 ML NEBU NEB PRN (18:15)
[2019-06-11] MEDS: BACLOFEN 10 MG TABLET GT SCH (18:36)
[2019-06-11] MEDS: FUROSEMIDE 20 MG/2 ML VIAL IV SCH (18:37)
[2019-06-11] MEDS: MINERAL OIL/PETROLAT OPHT OINT 3.5 GM TUBE EACHEYE SCH (19:24)
[2019-06-11] MEDS: LINEZOLID IV 600 MG in PREMIXED 1 EACH IV SCH (20:14)
[2019-06-11] MEDS: TRAZODONE 50 MG TABLET GT SCH (20:14)
[2019-06-11 20:27] VITALS: BP 112/64
[2019-06-11] MEDS: MEROPENEM 1 G in IV NORMAL SALINE 100 ML IV SCH (21:39)
[2019-06-12] VITALS (7 sets, daily range): BP systolic 95–159; BP diastolic 61–97
[2019-06-12] MEDS: MINERAL OIL/PETROLAT OPHT OINT 3.5 GM TUBE EACHEYE SCH ×2 (05:30→18:00)
[2019-06-12] MEDS: MEROPENEM 1 G in IV NORMAL SALINE 100 ML IV SCH ×3 (05:30→22:24)
[2019-06-12 06:48] LABS: BASOPHILS % (AUTO) 0.4 % (0.0-2.0); EOSINOPHILS # (AUTO) 0.1 K/uL (0.0-0.7); EOSINOPHILS % (AUTO) 0.7 % (0.0-7.0); HEMATOCRIT 30.7 % (31.2-41.9); HEMOGLOBIN 10.2 g/dL (10.9-14.3); LYMPHOCYTES # (AUTO) 1.5 K/uL (20.0-40.0); LYMPHOCYTES % (AUTO) 20.2 % (20.5-51.5); MEAN CORPUSCULAR HEMOGLOBIN 30.3 uug (24.7-32.8); MEAN CORPUSCULAR HGB CONC 33 g/dL (32.3-35.6); MEAN CORPUSCULAR VOLUME 91.3 fL (75.5-95.3); MONOCYTES # (AUTO) 0.5 K/uL (2.0-10.0); MONOCYTES % (AUTO) 7.3 % (0.0-11.0); NEUTROPHILS # (AUTO) 5.2 K/uL (1.8-8.9); NEUTROPHILS % (AUTO) 71.4 % (38.5-71.5); PLATELET COUNT (AUTO) 212 K/uL (179-408); RED BLOOD CELL COUNT(AUTO) 3.36 MIL/uL (3.63-4.92); WHITE BLOOD COUNT (AUTO) 7.3 K/uL (3.8-11.8)
[2019-06-12 06:53] LABS: ALANINE AMINOTRANSFERASE 56 U/L (14-59); ALKALINE PHOSPHATASE 98 U/L (50-136); ASPARTATE AMINOTRANSFERASE 30 U/L (15-37); BILIRUBIN,TOTAL 0.3 mg/dL (0.2-1.0); CARBON DIOXIDE 29 mmol/L (21-32); CHLORIDE 112 mmol/L (98-107); CREATININE 0.4 mg/dL (0.6-1.3); GLUCOSE 193 mg/dL (74-106); MAGNESIUM 2.3 mg/dL (1.8-2.4); PHOSPHOROUS 3.2 mg/dL (2.5-4.9); POTASSIUM 4.2 mmol/L (3.5-5.1); TOTAL PROTEIN, SERUM 7.6 g/dL (6.4-8.2); UREA NITROGEN, BLOOD 23 mg/dL (7-18)
[2019-06-12] MEDS: BACLOFEN 10 MG TABLET GT SCH ×2 (08:19→16:30)
[2019-06-12] MEDS: CHOLECALCIFEROL 1,000 UNIT TABLET GT SCH (08:19)
[2019-06-12] MEDS: POTASSIUM CHLORIDE 20 MEQ POWDER PACKET GT SCH (08:19)
[2019-06-12] MEDS: PANTOPRAZOLE ORAL SUSPENSION 40 MG SUSPDR.PKT GT SCH (08:19)
[2019-06-12] MEDS: LINEZOLID IV 600 MG in PREMIXED 1 EACH IV SCH (08:20)
[2019-06-12] MEDS: FUROSEMIDE 20 MG/2 ML VIAL IV SCH (08:20)
[2019-06-12] MEDS: PROTEIN SUPPLEMENT (PROSTAT) 30 ML LIQUID GT SCH ×2 (08:22→16:31)
[2019-06-12] MEDS ORDERED: Medication Not On Formulary EA (Protein Supplement (Promod) 30 ML) GT SCH (09:00)
[2019-06-12] MEDS: JEVITY 1.2 1000 ML LIQUID GT PRN (10:02)
[2019-06-12] MEDS: ACETAMINOPHEN 650 MG/20.3 ML LIQUID UDC GT PRN (16:30)
[2019-06-12] MEDS: TRAZODONE 50 MG TABLET GT SCH (21:00)
[2019-06-13] VITALS (9 sets, daily range): BP systolic 95–135; BP diastolic 58–79
[2019-06-13 05:12] LABS: BASOPHILS % (AUTO) 0.5 % (0.0-2.0); EOSINOPHILS # (AUTO) 0.2 K/uL (0.0-0.7); EOSINOPHILS % (AUTO) 2.2 % (0.0-7.0); HEMATOCRIT 29.7 % (31.2-41.9); HEMOGLOBIN 9.8 g/dL (10.9-14.3); LYMPHOCYTES # (AUTO) 1.3 K/uL (20.0-40.0); LYMPHOCYTES % (AUTO) 18.4 % (20.5-51.5); MEAN CORPUSCULAR HEMOGLOBIN 29.8 uug (24.7-32.8); MEAN CORPUSCULAR HGB CONC 33 g/dL (32.3-35.6); MEAN CORPUSCULAR VOLUME 90.4 fL (75.5-95.3); MONOCYTES # (AUTO) 0.5 K/uL (2.0-10.0); MONOCYTES % (AUTO) 6.9 % (0.0-11.0); NEUTROPHILS # (AUTO) 5.1 K/uL (1.8-8.9); PLATELET COUNT (AUTO) 228 K/uL (179-408); RED BLOOD CELL COUNT(AUTO) 3.29 MIL/uL (3.63-4.92)
[2019-06-13 05:27] LABS: ALANINE AMINOTRANSFERASE 77 U/L (14-59); ALKALINE PHOSPHATASE 93 U/L (50-136); ASPARTATE AMINOTRANSFERASE 45 U/L (15-37); BILIRUBIN,TOTAL 0.3 mg/dL (0.2-1.0); CARBON DIOXIDE 32 mmol/L (21-32); CHLORIDE 111 mmol/L (98-107); CREATININE 0.5 mg/dL (0.6-1.3); GLUCOSE 221 mg/dL (74-106); MAGNESIUM 2.1 mg/dL (1.8-2.4); PHOSPHOROUS 2.6 mg/dL (2.5-4.9); POTASSIUM 4.3 mmol/L (3.5-5.1); TOTAL PROTEIN, SERUM 7.4 g/dL (6.4-8.2); UREA NITROGEN, BLOOD 29 mg/dL (7-18)
[2019-06-13] MEDS: MINERAL OIL/PETROLAT OPHT OINT 3.5 GM TUBE EACHEYE SCH ×2 (06:15→17:16)
[2019-06-13] MEDS: MEROPENEM 1 G in IV NORMAL SALINE 100 ML IV SCH ×3 (06:16→22:13)
[2019-06-13] MEDS: PANTOPRAZOLE ORAL SUSPENSION 40 MG SUSPDR.PKT GT SCH (08:20)
[2019-06-13] MEDS: POTASSIUM CHLORIDE 20 MEQ POWDER PACKET GT SCH (08:20)
[2019-06-13] MEDS: FUROSEMIDE 20 MG/2 ML VIAL IV SCH (08:20)
[2019-06-13] MEDS: PROTEIN SUPPLEMENT (PROSTAT) 30 ML LIQUID GT SCH ×2 (08:34→16:48)
[2019-06-13] MEDS: BACLOFEN 10 MG TABLET GT SCH ×2 (08:52→16:48)
[2019-06-13] MEDS: CHOLECALCIFEROL 1,000 UNIT TABLET GT SCH (08:52)
[2019-06-13] MEDS: IV 1/2NS 1000 ML 1,000 ML IV PRN (10:22)
[2019-06-13] MEDS: TRAZODONE 50 MG TABLET GT SCH (20:06)
[2019-06-14] VITALS (7 sets, daily range): BP systolic 93–121; BP diastolic 53–70
[2019-06-14] MEDS: IV 1/2NS 1000 ML 1,000 ML IV PRN ×2 (00:54→17:13)
[2019-06-14 05:04] LABS: BASOPHILS # (AUTO) 0.1 K/uL (0.0-8.0); BASOPHILS % (AUTO) 0.7 % (0.0-2.0); EOSINOPHILS # (AUTO) 0.3 K/uL (0.0-0.7); HEMATOCRIT 30.4 % (31.2-41.9); HEMOGLOBIN 10.3 g/dL (10.9-14.3); LYMPHOCYTES # (AUTO) 1.6 K/uL (20.0-40.0); MEAN CORPUSCULAR HEMOGLOBIN 30.6 uug (24.7-32.8); MEAN CORPUSCULAR HGB CONC 34 g/dL (32.3-35.6); MEAN CORPUSCULAR VOLUME 90.3 fL (75.5-95.3); MONOCYTES # (AUTO) 0.4 K/uL (2.0-10.0); MONOCYTES % (AUTO) 5.5 % (0.0-11.0); NEUTROPHILS # (AUTO) 5.3 K/uL (1.8-8.9); NEUTROPHILS % (AUTO) 68.8 % (38.5-71.5); PLATELET COUNT (AUTO) 245 K/uL (179-408); RED BLOOD CELL COUNT(AUTO) 3.36 MIL/uL (3.63-4.92); WHITE BLOOD COUNT (AUTO) 7.8 K/uL (3.8-11.8)
[2019-06-14 05:13] LABS: CARBON DIOXIDE 29 mmol/L (21-32); CHLORIDE 103 mmol/L (98-107); CREATININE 0.4 mg/dL (0.6-1.3); GLUCOSE 192 mg/dL (74-106); PHOSPHOROUS 2.7 mg/dL (2.5-4.9); UREA NITROGEN, BLOOD 25 mg/dL (7-18)
[2019-06-14] MEDS: MEROPENEM 1 G in IV NORMAL SALINE 100 ML IV SCH ×2 (05:46→14:24)
[2019-06-14] MEDS: MINERAL OIL/PETROLAT OPHT OINT 3.5 GM TUBE EACHEYE SCH ×2 (05:46→17:15)
[2019-06-14] MEDS: PANTOPRAZOLE ORAL SUSPENSION 40 MG SUSPDR.PKT GT SCH (07:54)
[2019-06-14] MEDS: FUROSEMIDE 20 MG/2 ML VIAL IV SCH (07:55)
[2019-06-14] MEDS: CHOLECALCIFEROL 1,000 UNIT TABLET GT SCH (07:55)
[2019-06-14] MEDS: POTASSIUM CHLORIDE 20 MEQ POWDER PACKET GT SCH (07:55)
[2019-06-14] MEDS: BACLOFEN 10 MG TABLET GT SCH ×2 (07:56→16:07)
[2019-06-14] MEDS: PROTEIN SUPPLEMENT (PROSTAT) 30 ML LIQUID GT SCH ×2 (07:56→16:08)
[2019-06-14] MEDS: JEVITY 1.2 1000 ML LIQUID GT PRN (14:00)
[2019-06-14] MEDS: NITROFURANTOIN/NITROFURAN MAC 100 MG CAPSULE PO SCH (20:21)
[2019-06-14] MEDS: TRAZODONE 50 MG TABLET GT SCH (20:22)
[2019-06-14] MEDS: CEFTRIAXONE 1 G in IV DEXTROSE 5% 50 ML IV SCH (22:04)
[2019-06-15] VITALS: BP 108/62
[2019-06-15] MEDS: Z GUARD REMEDY PASTE 57 GM TUBE TOP PRN (00:12)
[2019-06-15 04:00] VITALS: BP 100/65
[2019-06-15] MEDS: MINERAL OIL/PETROLAT OPHT OINT 3.5 GM TUBE EACHEYE SCH ×2 (05:16→19:34)
[2019-06-15 05:21] LABS: BASOPHILS # (AUTO) 0.1 K/uL (0.0-8.0); BASOPHILS % (AUTO) 0.8 % (0.0-2.0); EOSINOPHILS # (AUTO) 0.3 K/uL (0.0-0.7); EOSINOPHILS % (AUTO) 3.3 % (0.0-7.0); HEMATOCRIT 34.6 % (31.2-41.9); HEMOGLOBIN 11.4 g/dL (10.9-14.3); LYMPHOCYTES # (AUTO) 1.7 K/uL (20.0-40.0); LYMPHOCYTES % (AUTO) 18.3 % (20.5-51.5); MEAN CORPUSCULAR HEMOGLOBIN 29.8 uug (24.7-32.8); MEAN CORPUSCULAR HGB CONC 33 g/dL (32.3-35.6); MEAN CORPUSCULAR VOLUME 90.9 fL (75.5-95.3); MONOCYTES # (AUTO) 0.5 K/uL (2.0-10.0); MONOCYTES % (AUTO) 5.5 % (0.0-11.0); NEUTROPHILS # (AUTO) 6.6 K/uL (1.8-8.9); NEUTROPHILS % (AUTO) 72.1 % (38.5-71.5); PLATELET COUNT (AUTO) 302 K/uL (179-408); RED BLOOD CELL COUNT(AUTO) 3.81 MIL/uL (3.63-4.92); WHITE BLOOD COUNT (AUTO) 9.1 K/uL (3.8-11.8)
[2019-06-15 05:27] LABS: CARBON DIOXIDE 30 mmol/L (21-32); CHLORIDE 103 mmol/L (98-107); CREATININE 0.4 mg/dL (0.6-1.3); GLUCOSE 148 mg/dL (74-106); MAGNESIUM 2.1 mg/dL (1.8-2.4); PHOSPHOROUS 2.9 mg/dL (2.5-4.9); POTASSIUM 4.2 mmol/L (3.5-5.1); UREA NITROGEN, BLOOD 18 mg/dL (7-18)
[2019-06-15] MEDS: IV 1/2NS 1000 ML 1,000 ML IV PRN ×2 (06:07→12:45)
[2019-06-15 08:00] VITALS: BP 95/66
[2019-06-15] MEDS: PANTOPRAZOLE ORAL SUSPENSION 40 MG SUSPDR.PKT GT SCH (09:25)
[2019-06-15] MEDS: FUROSEMIDE 20 MG/2 ML VIAL IV SCH (09:25)
[2019-06-15] MEDS: POTASSIUM CHLORIDE 20 MEQ POWDER PACKET GT SCH (09:25)
[2019-06-15] MEDS: BACLOFEN 10 MG TABLET GT SCH ×2 (09:26→16:32)
[2019-06-15] MEDS: CHOLECALCIFEROL 1,000 UNIT TABLET GT SCH (09:26)
[2019-06-15] MEDS: NITROFURANTOIN/NITROFURAN MAC 100 MG CAPSULE PO SCH ×2 (09:26→21:48)
[2019-06-15] MEDS: PROTEIN SUPPLEMENT (PROSTAT) 30 ML LIQUID GT SCH ×2 (09:27→16:32)
[2019-06-15 12:00] VITALS: BP 109/69
[2019-06-15] MEDS: JEVITY 1.2 1000 ML LIQUID GT PRN (14:23)
[2019-06-15 16:00] VITALS: BP 94/51
[2019-06-15 20:00] VITALS: BP 119/59
[2019-06-15] MEDS: TRAZODONE 50 MG TABLET GT SCH (21:48)
[2019-06-15] MEDS: CEFTRIAXONE 1 G in IV DEXTROSE 5% 50 ML IV SCH (21:49)
[2019-06-16] VITALS (9 sets, daily range): BP systolic 94–116; BP diastolic 57–66
[2019-06-16 05:28] LABS: BASOPHILS % (AUTO) 0.4 % (0.0-2.0); EOSINOPHILS # (AUTO) 0.3 K/uL (0.0-0.7); EOSINOPHILS % (AUTO) 3.3 % (0.0-7.0); HEMATOCRIT 28.2 % (31.2-41.9); HEMOGLOBIN 9.5 g/dL (10.9-14.3); LYMPHOCYTES # (AUTO) 1.7 K/uL (20.0-40.0); LYMPHOCYTES % (AUTO) 21.1 % (20.5-51.5); MEAN CORPUSCULAR HEMOGLOBIN 30.3 uug (24.7-32.8); MEAN CORPUSCULAR HGB CONC 34 g/dL (32.3-35.6); MEAN CORPUSCULAR VOLUME 90.3 fL (75.5-95.3); MONOCYTES # (AUTO) 0.4 K/uL (2.0-10.0); MONOCYTES % (AUTO) 5.2 % (0.0-11.0); NEUTROPHILS # (AUTO) 5.8 K/uL (1.8-8.9); PLATELET COUNT (AUTO) 264 K/uL (179-408); RED BLOOD CELL COUNT(AUTO) 3.12 MIL/uL (3.63-4.92); WHITE BLOOD COUNT (AUTO) 8.3 K/uL (3.8-11.8)
[2019-06-16 05:37] LABS: CARBON DIOXIDE 30 mmol/L (21-32); CHLORIDE 102 mmol/L (98-107); CREATININE 0.3 mg/dL (0.6-1.3); GLUCOSE 175 mg/dL (74-106); PHOSPHOROUS 2.9 mg/dL (2.5-4.9); POTASSIUM 3.9 mmol/L (3.5-5.1); UREA NITROGEN, BLOOD 22 mg/dL (7-18)
[2019-06-16] MEDS: MINERAL OIL/PETROLAT OPHT OINT 3.5 GM TUBE EACHEYE SCH ×2 (05:43→17:39)
[2019-06-16] MEDS: Z GUARD REMEDY PASTE 57 GM TUBE TOP PRN (05:43)
[2019-06-16] MEDS: IV NORMAL SALINE 250 ML IV PRN (05:48)
[2019-06-16] MEDS: NITROFURANTOIN/NITROFURAN MAC 100 MG CAPSULE PO SCH ×2 (08:24→21:18)
[2019-06-16] MEDS: BACLOFEN 10 MG TABLET GT SCH ×2 (08:24→17:38)
[2019-06-16] MEDS: CHOLECALCIFEROL 1,000 UNIT TABLET GT SCH (08:24)
[2019-06-16] MEDS: PANTOPRAZOLE ORAL SUSPENSION 40 MG SUSPDR.PKT GT SCH (08:26)
[2019-06-16] MEDS: FUROSEMIDE 20 MG/2 ML VIAL IV SCH (08:26)
[2019-06-16] MEDS: PROTEIN SUPPLEMENT (PROSTAT) 30 ML LIQUID GT SCH ×2 (08:26→17:38)
[2019-06-16] MEDS: POTASSIUM CHLORIDE 20 MEQ POWDER PACKET GT SCH (08:27)
[2019-06-16] MEDS: JEVITY 1.2 1000 ML LIQUID GT PRN (09:56)
[2019-06-16] MEDS: TRAZODONE 50 MG TABLET GT SCH (21:17)
[2019-06-16] MEDS: CEFTRIAXONE 1 G in IV DEXTROSE 5% 50 ML IV SCH (21:18)
[2019-06-17] VITALS (8 sets, daily range): BP systolic 94–129; BP diastolic 53–72
[2019-06-17] MEDS: IV NORMAL SALINE 250 ML IV PRN (02:06)
[2019-06-17] MEDS: JEVITY 1.2 1000 ML LIQUID GT PRN (03:39)
[2019-06-17 05:11] LABS: BASOPHILS % (AUTO) 0.6 % (0.0-2.0); EOSINOPHILS # (AUTO) 0.2 K/uL (0.0-0.7); EOSINOPHILS % (AUTO) 2.7 % (0.0-7.0); HEMATOCRIT 28.6 % (31.2-41.9); HEMOGLOBIN 9.6 g/dL (10.9-14.3); LYMPHOCYTES # (AUTO) 1.8 K/uL (20.0-40.0); LYMPHOCYTES % (AUTO) 21.4 % (20.5-51.5); MEAN CORPUSCULAR HEMOGLOBIN 30.3 uug (24.7-32.8); MEAN CORPUSCULAR HGB CONC 33 g/dL (32.3-35.6); MEAN CORPUSCULAR VOLUME 90.6 fL (75.5-95.3); MONOCYTES # (AUTO) 0.5 K/uL (2.0-10.0); MONOCYTES % (AUTO) 6.1 % (0.0-11.0); NEUTROPHILS # (AUTO) 5.9 K/uL (1.8-8.9); NEUTROPHILS % (AUTO) 69.2 % (38.5-71.5); PLATELET COUNT (AUTO) 284 K/uL (179-408); RED BLOOD CELL COUNT(AUTO) 3.16 MIL/uL (3.63-4.92); WHITE BLOOD COUNT (AUTO) 8.5 K/uL (3.8-11.8)
[2019-06-17 05:23] LABS: CARBON DIOXIDE 30 mmol/L (21-32); CHLORIDE 103 mmol/L (98-107); CREATININE 0.3 mg/dL (0.6-1.3); GLUCOSE 137 mg/dL (74-106); MAGNESIUM 2.1 mg/dL (1.8-2.4); PHOSPHOROUS 2.9 mg/dL (2.5-4.9); UREA NITROGEN, BLOOD 23 mg/dL (7-18)
[2019-06-17] MEDS: MINERAL OIL/PETROLAT OPHT OINT 3.5 GM TUBE EACHEYE SCH ×2 (05:23→17:32)
[2019-06-17] MEDS: CHOLECALCIFEROL 1,000 UNIT TABLET GT SCH (07:52)
[2019-06-17] MEDS: BACLOFEN 10 MG TABLET GT SCH ×2 (07:52→16:22)
[2019-06-17] MEDS: POTASSIUM CHLORIDE 20 MEQ POWDER PACKET GT SCH (07:52)
[2019-06-17] MEDS: PANTOPRAZOLE ORAL SUSPENSION 40 MG SUSPDR.PKT GT SCH (07:52)
[2019-06-17] MEDS: PROTEIN SUPPLEMENT (PROSTAT) 30 ML LIQUID GT SCH ×2 (07:54→16:22)
[2019-06-17] MEDS: FUROSEMIDE 20 MG/2 ML VIAL IV SCH (07:54)
[2019-06-17 09:41] LABS: ABG HCO3 26.6 mmol/L; ABG PCO2 36.7 mmHg (35.0-45.0); ABG PH 7.478 (7.350-7.450); ABG SITE RIGHT RADIAL; ABG TOTAL HEMOGLOBIN 9.9 G/dL (12.0-16.0); COHb 0.4 % (0.5-1.5); MetHb 0.3 % (0.0-1.5); O2Hb 98.7 % (94.0-97.0); VENT MODE VENT - A/C12; VT, ABG 500 mL
[2019-06-17] MEDS: TRAZODONE 50 MG TABLET GT SCH (20:35)
[2019-06-17] MEDS: CEFTRIAXONE 1 G in IV DEXTROSE 5% 50 ML IV SCH (21:21)
[2019-06-18 00:01] VITALS: BP 111/62
[2019-06-18] MEDS: JEVITY 1.2 1000 ML LIQUID GT PRN (01:06)
[2019-06-18] MEDS: IV NORMAL SALINE 250 ML IV PRN (01:50)
[2019-06-18 04:00] VITALS: BP 108/57
[2019-06-18 05:15] LABS: BASOPHILS # (AUTO) 0.1 K/uL (0.0-8.0); BASOPHILS % (AUTO) 0.7 % (0.0-2.0); EOSINOPHILS # (AUTO) 0.2 K/uL (0.0-0.7); EOSINOPHILS % (AUTO) 2.6 % (0.0-7.0); HEMATOCRIT 28.9 % (31.2-41.9); HEMOGLOBIN 9.9 g/dL (10.9-14.3); LYMPHOCYTES # (AUTO) 1.8 K/uL (20.0-40.0); LYMPHOCYTES % (AUTO) 19.1 % (20.5-51.5); MEAN CORPUSCULAR HGB CONC 34 g/dL (32.3-35.6); MEAN CORPUSCULAR VOLUME 90.7 fL (75.5-95.3); MONOCYTES # (AUTO) 0.5 K/uL (2.0-10.0); MONOCYTES % (AUTO) 5.5 % (0.0-11.0); NEUTROPHILS # (AUTO) 6.9 K/uL (1.8-8.9); NEUTROPHILS % (AUTO) 72.1 % (38.5-71.5); PLATELET COUNT (AUTO) 273 K/uL (179-408); RED BLOOD CELL COUNT(AUTO) 3.19 MIL/uL (3.63-4.92); WHITE BLOOD COUNT (AUTO) 9.5 K/uL (3.8-11.8)
[2019-06-18 05:34] LABS: CARBON DIOXIDE 32 mmol/L (21-32); CHLORIDE 104 mmol/L (98-107); CREATININE 0.4 mg/dL (0.6-1.3); GLUCOSE 161 mg/dL (74-106); MAGNESIUM 2.1 mg/dL (1.8-2.4); PHOSPHOROUS 3.5 mg/dL (2.5-4.9); POTASSIUM 4.1 mmol/L (3.5-5.1); UREA NITROGEN, BLOOD 32 mg/dL (7-18)
[2019-06-18] MEDS: MINERAL OIL/PETROLAT OPHT OINT 3.5 GM TUBE EACHEYE SCH ×2 (07:14→18:04)
[2019-06-18 08:00] VITALS: BP 128/69
[2019-06-18] MEDS: PANTOPRAZOLE ORAL SUSPENSION 40 MG SUSPDR.PKT GT SCH (10:08)
[2019-06-18] MEDS: BACLOFEN 10 MG TABLET GT SCH ×2 (10:09→18:03)
[2019-06-18] MEDS: CHOLECALCIFEROL 1,000 UNIT TABLET GT SCH (10:09)
[2019-06-18] MEDS: FUROSEMIDE 20 MG/2 ML VIAL IV SCH (10:09)
[2019-06-18] MEDS: PROTEIN SUPPLEMENT (PROSTAT) 30 ML LIQUID GT SCH ×2 (10:09→18:03)
[2019-06-18] MEDS: POTASSIUM CHLORIDE 20 MEQ POWDER PACKET GT SCH (10:15)
[2019-06-18 12:00] VITALS: BP 106/60
[2019-06-18 16:00] VITALS: BP 116/63
[2019-06-18 20:00] VITALS: BP 113/51
[2019-06-18] MEDS: TRAZODONE 50 MG TABLET GT SCH (21:28)
[2019-06-18] MEDS: CEFTRIAXONE 1 G in IV DEXTROSE 5% 50 ML IV SCH (21:28)
[2019-06-19] VITALS (7 sets, daily range): BP systolic 91–134; BP diastolic 47–75
[2019-06-19] MEDS: IV NORMAL SALINE 250 ML IV PRN (04:29)
[2019-06-19 05:23] LABS: BASOPHILS # (AUTO) 0.1 K/uL (0.0-8.0); BASOPHILS % (AUTO) 0.7 % (0.0-2.0); EOSINOPHILS # (AUTO) 0.3 K/uL (0.0-0.7); EOSINOPHILS % (AUTO) 2.8 % (0.0-7.0); HEMATOCRIT 30.3 % (31.2-41.9); HEMOGLOBIN 10.1 g/dL (10.9-14.3); LYMPHOCYTES # (AUTO) 1.9 K/uL (20.0-40.0); LYMPHOCYTES % (AUTO) 17.2 % (20.5-51.5); MEAN CORPUSCULAR HEMOGLOBIN 30.2 uug (24.7-32.8); MEAN CORPUSCULAR HGB CONC 33 g/dL (32.3-35.6); MEAN CORPUSCULAR VOLUME 90.8 fL (75.5-95.3); MONOCYTES # (AUTO) 0.6 K/uL (2.0-10.0); MONOCYTES % (AUTO) 5.1 % (0.0-11.0); NEUTROPHILS # (AUTO) 8.2 K/uL (1.8-8.9); NEUTROPHILS % (AUTO) 74.2 % (38.5-71.5); PLATELET COUNT (AUTO) 307 K/uL (179-408); RED BLOOD CELL COUNT(AUTO) 3.34 MIL/uL (3.63-4.92); WHITE BLOOD COUNT (AUTO) 11.1 K/uL (3.8-11.8)
[2019-06-19 05:44] LABS: CARBON DIOXIDE 33 mmol/L (21-32); CHLORIDE 104 mmol/L (98-107); GLUCOSE 160 mg/dL (74-106); PHOSPHOROUS 3.3 mg/dL (2.5-4.9); POTASSIUM 3.9 mmol/L (3.5-5.1); UREA NITROGEN, BLOOD 32 mg/dL (7-18)
[2019-06-19] MEDS: MINERAL OIL/PETROLAT OPHT OINT 3.5 GM TUBE EACHEYE SCH ×2 (05:45→18:23)
[2019-06-19 06:02] LABS: CREATININE 0.4 mg/dL (0.6-1.3)
[2019-06-19] MEDS: PANTOPRAZOLE ORAL SUSPENSION 40 MG SUSPDR.PKT GT SCH (08:23)
[2019-06-19] MEDS: BACLOFEN 10 MG TABLET GT SCH ×2 (08:23→16:55)
[2019-06-19] MEDS: CHOLECALCIFEROL 1,000 UNIT TABLET GT SCH (08:23)
[2019-06-19] MEDS: POTASSIUM CHLORIDE 20 MEQ POWDER PACKET GT SCH (08:23)
[2019-06-19] MEDS: FUROSEMIDE 20 MG/2 ML VIAL IV SCH (08:24)
[2019-06-19] MEDS: PROTEIN SUPPLEMENT (PROSTAT) 30 ML LIQUID GT SCH ×2 (08:24→16:59)
[2019-06-19] MEDS: ACETAMINOPHEN 650 MG/20.3 ML LIQUID UDC GT PRN (09:09)
[2019-06-19] MEDS ORDERED: MORPHINE SULFATE 2 MG/1 ML DISP.SYRIN IV PRN (09:30)
[2019-06-19] MEDS ORDERED: LEVALBUTEROL HCL NEB 0.63 MG/3 ML NEBU NEB PRN (10:00)
[2019-06-19] MEDS: JEVITY 1.2 1000 ML LIQUID GT PRN (10:10)
[2019-06-19] MEDS: LEVALBUTEROL HCL NEB 0.63 MG/3 ML NEBU NEB SCH ×2 (13:10→18:29)
[2019-06-19] MEDS: IPRATROPIUM BROMIDE 0.5 MG/2.5 ML NEBU NEB SCH ×2 (13:10→18:29)
[2019-06-19] MEDS: TRAZODONE 50 MG TABLET GT SCH (20:18)
[2019-06-19] MEDS: CEFTRIAXONE 1 G in IV DEXTROSE 5% 50 ML IV SCH (21:38)
[2019-06-20] VITALS (9 sets, daily range): BP systolic 93–136; BP diastolic 59–66
[2019-06-20] MEDS: LEVALBUTEROL HCL NEB 0.63 MG/3 ML NEBU NEB SCH ×4 (00:16→19:48)
[2019-06-20] MEDS: IPRATROPIUM BROMIDE 0.5 MG/2.5 ML NEBU NEB SCH ×4 (00:16→19:48)
[2019-06-20] MEDS: ACETAMINOPHEN 650 MG/20.3 ML LIQUID UDC GT PRN (00:56)
[2019-06-20] MEDS: JEVITY 1.2 1000 ML LIQUID GT PRN (01:18)
[2019-06-20] MEDS: IV NORMAL SALINE 250 ML IV PRN (03:10)
[2019-06-20] MEDS: MINERAL OIL/PETROLAT OPHT OINT 3.5 GM TUBE EACHEYE SCH ×2 (05:44→16:50)
[2019-06-20 05:58] LABS: BASOPHILS # (AUTO) 0.1 K/uL (0.0-8.0); BASOPHILS % (AUTO) 0.8 % (0.0-2.0); EOSINOPHILS # (AUTO) 0.3 K/uL (0.0-0.7); EOSINOPHILS % (AUTO) 2.5 % (0.0-7.0); HEMATOCRIT 27.8 % (31.2-41.9); HEMOGLOBIN 9.3 g/dL (10.9-14.3); LYMPHOCYTES # (AUTO) 1.6 K/uL (20.0-40.0); LYMPHOCYTES % (AUTO) 15.1 % (20.5-51.5); MEAN CORPUSCULAR HEMOGLOBIN 30.7 uug (24.7-32.8); MEAN CORPUSCULAR HGB CONC 34 g/dL (32.3-35.6); MEAN CORPUSCULAR VOLUME 91.4 fL (75.5-95.3); MONOCYTES # (AUTO) 0.7 K/uL (2.0-10.0); MONOCYTES % (AUTO) 6.6 % (0.0-11.0); PLATELET COUNT (AUTO) 271 K/uL (179-408); RED BLOOD CELL COUNT(AUTO) 3.04 MIL/uL (3.63-4.92); WHITE BLOOD COUNT (AUTO) 10.6 K/uL (3.8-11.8)
[2019-06-20 06:15] LABS: CARBON DIOXIDE 32 mmol/L (21-32); CHLORIDE 107 mmol/L (98-107); CREATININE 0.3 mg/dL (0.6-1.3); GLUCOSE 179 mg/dL (74-106); PHOSPHOROUS 3.4 mg/dL (2.5-4.9); POTASSIUM 3.9 mmol/L (3.5-5.1); UREA NITROGEN, BLOOD 37 mg/dL (7-18)
[2019-06-20] MEDS: PANTOPRAZOLE ORAL SUSPENSION 40 MG SUSPDR.PKT GT SCH (08:24)
[2019-06-20] MEDS: CHOLECALCIFEROL 1,000 UNIT TABLET GT SCH (08:24)
[2019-06-20] MEDS: FUROSEMIDE 20 MG/2 ML VIAL IV SCH (08:24)
[2019-06-20] MEDS: POTASSIUM CHLORIDE 20 MEQ POWDER PACKET GT SCH (08:24)
[2019-06-20] MEDS: BACLOFEN 10 MG TABLET GT SCH ×2 (08:24→16:49)
[2019-06-20] MEDS: PROTEIN SUPPLEMENT (PROSTAT) 30 ML LIQUID GT SCH ×2 (08:25→16:50)
[2019-06-20 08:36] LABS: ABG BASE EXCESS 6.1 mmol/L; ABG HCO3 31.3 mmol/L; ABG PCO2 48.3 mmHg (35.0-45.0); ABG PO2 132.5 mmHg (75.0-100.0); ABG SITE LEFT RADIAL; ABG TOTAL HEMOGLOBIN 10.7 G/dL (12.0-16.0); COHb 0.8 % (0.5-1.5); MetHb 0.3 % (0.0-1.5); O2Hb 97.8 % (94.0-97.0); VENT MODE VENT - A/C; VT, ABG 500 mL
[2019-06-20] MEDS ORDERED: CEFT1FRO2 IV (17:01)
[2019-06-20] MEDS: TRAZODONE 50 MG TABLET GT SCH (20:26)
[2019-06-20] MEDS: CEFTRIAXONE 1 G in IV DEXTROSE 5% 50 ML IV SCH (21:19)
[2019-06-21] VITALS: BP 105/68
[2019-06-21] MEDS: IPRATROPIUM BROMIDE 0.5 MG/2.5 ML NEBU NEB SCH ×3 (00:30→13:54)
[2019-06-21] MEDS: LEVALBUTEROL HCL NEB 0.63 MG/3 ML NEBU NEB SCH ×3 (00:30→13:54)
[2019-06-21 00:32] VITALS: BP 105/68
[2019-06-21 04:00] VITALS: BP 121/67
[2019-06-21] MEDS: MINERAL OIL/PETROLAT OPHT OINT 3.5 GM TUBE EACHEYE SCH (05:23)
[2019-06-21] MEDS: ACETAMINOPHEN 650 MG/20.3 ML LIQUID UDC GT PRN (05:49)
[2019-06-21 07:30] VITALS: BP 113/69
[2019-06-21] MEDS: CHOLECALCIFEROL 1,000 UNIT TABLET GT SCH (08:00)
[2019-06-21] MEDS: POTASSIUM CHLORIDE 20 MEQ POWDER PACKET GT SCH (08:00)
[2019-06-21] MEDS: PROTEIN SUPPLEMENT (PROSTAT) 30 ML LIQUID GT SCH (08:00)
[2019-06-21] MEDS: BACLOFEN 10 MG TABLET GT SCH (08:00)
[2019-06-21] MEDS: PANTOPRAZOLE ORAL SUSPENSION 40 MG SUSPDR.PKT GT SCH (08:00)
[2019-06-21] MEDS: FUROSEMIDE 20 MG/2 ML VIAL IV SCH (08:01)
[2019-06-21 11:28] VITALS: BP 108/70
== END 2019-06-21 15:00 | DRG 870 ==
LOC: ER 20:40 → TELE-TD3 23:32 → UNDOADMIN 06-10 08:21 → TELE-TD3 06-10 08:21 → CCU 06-12 20:35 → TELE-TD3 06-12 20:35
PROVIDERS: ADMIT Internal Medicine; ATTEND Internal Medicine
PROC: 5A1955Z Respiratory Ventilation, Greater than 96 Consecutive Hours (ICD-10-PCS; principal; 2019-06-09)
DX: A41.51 Sepsis due to Escherichia coli [E. coli] (principal); R53.2 Functional quadriplegia; N17.0 Acute kidney failure with tubular necrosis; G92 Toxic encephalopathy; I50.31 Acute diastolic (congestive) heart failure; E43 Unspecified severe protein-calorie malnutrition; N39.0 Urinary tract infection, site not specified; Z16.12 Extended spectrum beta lactamase (ESBL) resistance; J96.11 Chronic respiratory failure with hypoxia; Z99.11 Dependence on respirator [ventilator] status; J96.12 Chronic respiratory failure with hypercapnia; E87.0 Hyperosmolality and hypernatremia; D68.59 Other primary thrombophilia; B96.20 Unspecified Escherichia coli [E. coli] as the cause of diseases classified elsewhere; G35 Multiple sclerosis; R65.20 Severe sepsis without septic shock; Z87.442 Personal history of urinary calculi; G71.00 Muscular dystrophy, unspecified; Z86.011 Personal history of benign neoplasm of the brain; H10.30 Unspecified acute conjunctivitis, unspecified eye; G89.4 Chronic pain syndrome; I70.0 Atherosclerosis of aorta; R91.1 Solitary pulmonary nodule; I11.0 Hypertensive heart disease with heart failure; K21.9 Gastro-esophageal reflux disease without esophagitis; I35.8 Other nonrheumatic aortic valve disorders; R73.03 Prediabetes; Z79.82 Long term (current) use of aspirin; Z79.899 Other long term (current) drug therapy; Z87.440 Personal history of urinary (tract) infections; Z88.1 Allergy status to other antibiotic agents; Z93.0 Tracheostomy status; Z93.1 Gastrostomy status; M50.30 Other cervical disc degeneration, unspecified cervical region; F03.90 Unspecified dementia, unspecified severity, without behavioral disturbance, psychotic disturbance, mood disturbance, and anxiety; R00.0 Tachycardia, unspecified; E87.6 Hypokalemia; E78.5 Hyperlipidemia, unspecified; F25.9 Schizoaffective disorder, unspecified; M19.90 Unspecified osteoarthritis, unspecified site; E86.9 Volume depletion, unspecified; E07.9 Disorder of thyroid, unspecified; F41.9 Anxiety disorder, unspecified; K80.20 Calculus of gallbladder without cholecystitis without obstruction; D64.9 Anemia, unspecified; A41.59 Other Gram-negative sepsis
CPT/HCPCS: 36415; 36600; 70030-TC; 71045; 83605; 83735; 84100; 85025; 87040; 87070; 87077; 87086; 87400; 93005; 93307; 94002; 94003; 94640; A4217; A4663; C9113; G0378; J0696; J1940; J2020; J2185; J3480; J3490; J3590; J7030; J7050; J7060; J7614